=== PATIENT | female | born 1980 | race Two or more races ===

== ENCOUNTER 2019-12-14 22:13 | Emergency (ER) | payer SELFPAY ==
[~2019-12-14] VITALS: Ht 157.5 cm; Wt 72.0 kg
[2019-12-14] MEDS ORDERED: HYDROcodone/APAP 5/325 TABLET PO STA (22:26)
[2019-12-14] MEDS ORDERED: ONDANSETRON ODT 4 MG PO ONE (22:30)
[2019-12-14] MEDS ORDERED: ONDANSETRON ODT 4 MG ONE (22:39)
[2019-12-14] MEDS ORDERED: HYDROcodone/APAP 5/325 TABLET ONE (22:39)
--- NOTE | 2019-12-14 22:44 | NUR ---
PT TO XRAY AT THIS TIME
[2019-12-15 00:16] VITALS: BP 150/85
== END 2019-12-15 00:18 | disposition home or self-care (01) ==
LOC: ED 22:39
DX: S39.012A Strain of muscle, fascia and tendon of lower back, initial encounter (principal); S82.155A Nondisplaced fracture of left tibial tuberosity, initial encounter for closed fracture; M25.462 Effusion, left knee; W01.0XXA Fall on same level from slipping, tripping and stumbling without subsequent striking against object, initial encounter; Y93.89 Activity, other specified; Y92.89 Other specified places as the place of occurrence of the external cause; Y99.8 Other external cause status
CPT/HCPCS: 72110; 73564; 99284; Q0162